=== PATIENT | male | born 1985 | race Two or more races ===

== ENCOUNTER 2018-01-11 16:28 | Emergency (ER) | payer OTHER ==
[2018-01-11 16:42] VITALS: BP 132/74
--- NOTE | 2018-01-11 17:14 | ER Document Report ---
HPI - HPI Patient complains to provider of: Left knee pain Pain Level: 2 Context: Patient is a 32-year-old male complaining of left knee pain times several weeks. He has noted some instability in the left knee. Pain is anterior. Patient noted increased pain today. No trauma recalled. Patient was a special ops in for 8 years. No redness or swelling to knee. Pain is aggravated with weightbearing Associated Symptoms: None Exacerbated by: Walking Relieved by: Denies Similar symptoms previously: Yes Recently seen / treated by doctor: No - MUSCULOSKELETAL Musculoskeletal: REPORTS: Extremity pain Past Medical History - General Information source: Patient - Social History Smoking Status: Never Smoker Frequency of alcohol use: None Drug Abuse: None Lives with: Family Family History: Reviewed & Not Pertinent Patient has suicidal ideation: No Patient has homicidal ideation: No Renal/ Medical History: Denies: Hx Peritoneal Dialysis Vertical Provider Document - CONSTITUTIONAL Agree With Documented VS: Yes Exam Limitations: No Limitations - INFECTION CONTROL TRAVEL OUTSIDE OF THE [place] IN LAST 30 DAYS: No - HEENT HEENT: Atraumatic, PERRLA - NECK Neck: Normal Inspection - RESPIRATORY Respiratory: Breath Sounds Normal, No Respiratory Distress - CARDIOVASCULAR Cardiovascular: Regular Rate, Regular Rhythm - MUSCULOSKELETAL/EXTREMETIES Musculoskeletal/Extremeties: Tender. negative: No Edema, Eccymosis Notes: Mild focal peripatellar tenderness left anterior knee. No lateral or medial compartment tenderness. Negative drawer. No popliteal pain. No erythema, ecchymosis, effusion. Course - Re-evaluation Re-evalutation: 01/11/18 17:13 After performing a Medical Screening Examination, I estimate there is LOW risk for OPEN FRACTURE, COMPARTMENT SYNDROME, DEEP VENOUS THROMBOSIS, ACUTE TENDON RUPTURE, or NEUROVASCULAR INJURY thus I consider the discharge disposition reasonable. I have reevaluated this patient multiple times and no significant life threatening changes are noted. The patient and I have discussed the diagnosis and risks, and we agree with discharging home to closely follow-up with their primary doctor or the referral orthopedist with the understanding that symptoms and presentations can change. We also discussed returning to the Emergency Department immediately if new or worsening symptoms occur. We have discussed the symptoms which are most concerning (e.g., changing or worsening pain, numbness, weakness) that necessitate immediate return - Vital Signs Vital signs: Temp Pulse Resp BP Pulse Ox 98.3 F 65 16 132/74 H 98 01/11/18 16:33 01/11/18 16:33 01/11/18 16:33 01/11/18 16:33 01/11/18 16:33 Discharge - Discharge Clinical Impression: Patellofemoral pain syndrome of left knee Left knee pain Qualifiers: Chronicity: chronic Qualified Code(s): M25.562 - Pain in left knee Condition: Stable Disposition: HOME, SELF-CARE Instructions: Suspected Internal Knee Injury ([facility]) Additional Instructions: Your x-rays are negative for any bony injury Uncertain cause of your knee pain but most likely patellofemoral pain syndrome This type of pain will cause weakness in the knee with a feeling of instability Structural damage needs to be ruled out I recommend further diagnostics with MRI and further orthopedic evaluation You may benefit from wearing a neoprene knee brace for comfort and compression until evaluated by orthopedist Prescriptions: Ibuprofen [Motrin 800 Mg Tablet] 800 mg PO Q6H #20 tablet
--- NOTE | 2018-01-11 17:41 | RADIOLOGY REPORT (SQ) ---
EXAM DESCRIPTION: KNEE LEFT 4 VIEW COMPLETED DATE/TIME: 01/11/2018 5:29 pm REASON FOR STUDY: left knee pain COMPARISON: None. NUMBER OF VIEWS: Four views. TECHNIQUE: AP, lateral, and both oblique radiographic images acquired of the left knee. LIMITATIONS: None. FINDINGS: MINERALIZATION: Normal. BONES: No acute fracture or dislocation. No worrisome bone lesions. JOINT: No effusion. SOFT TISSUES: No soft tissue swelling. No radio-opaque foreign body. OTHER: No other significant finding. IMPRESSION: NEGATIVE STUDY OF THE LEFT KNEE. NO RADIOGRAPHIC EVIDENCE OF ACUTE INJURY. TECHNICAL DOCUMENTATION: JOB ID: [id number] [employer]- All Rights Reserved Reading location - IP/workstation name: [email or web address]
== END 2018-01-11 17:48 | disposition home or self-care (01) ==
LOC: ER 16:28
DX: M25.562 Pain in left knee (principal); M25.862 Other specified joint disorders, left knee
CPT/HCPCS: 99283